=== PATIENT | female | born 1995 | race Caucasian/White ===

== ENCOUNTER 2016-09-12 11:20 | Emergency (ER) | payer OTHER ==
[~2016-09-12] VITALS: Ht 170.1 cm; Wt 74.8 kg
[~2016-09-12 11:20] MED LIST: AMOXICILLIN500 MG PO; AMOXIL250 MG PO; ANAPROX DS550 MG PO; ANUSOL-HC25 MG R; BIRTH CONTROL1 EAC1 PO; BROMFED DM COU473 ML PO; CELEXA10 MG PO; CETIRIZINE HYDR10 MG PO; CIPRO250 MG PO; CIPRO500 MG PO; CLARITIN-D 10 M1 T21 PO; CLARITIN10 MG PO; CLINDAMYCIN HC300 MG PO; Ciprodex 0.3%-7.5 ML OT; FEOSOL45 MG PO; FERROUS SULFATE27 MG PO; FLAGYL500 MG PO; FLEXERIL5 MG PO; FLINTSTONES1 CTB PO; FLOMAX0.4 MG PO; FLUTICASON0.05 MG/A1 NAS; GABAPENTIN1 CRY; IBU800 M1 PO; IBU800 MG PO; IRON65 M1 PO; KEFLEX500 M1 PO; LOMOTIL 0.025 M1 TA1 PO; MACROBID100 M1 PO; MACRODANTIN100 MG PO; MEDROL DOSEPAK4 MG PO; MOTRIN800 MG PO; MULTIVITAMIN1 CTB PO; NEURONTIN300 MG PO; NKHM PO; OMNICEF300 MG PO; ONDANSETRON HYDR4 MG PO; PERCOCET 325 MG1 TA2 PO; PHENERGAN25 M3 PO; PHENERGAN25 MG R; PREDNICOT20 MG PO; PRENATAL1 TA1 PO; PRENATAL1 TA3 PO; PRENATAL1 TA7 PO; PROMETHAZINE25 M1 PO; PROZAC10 MG PO; PYRIDIUM200 M1 PO; RISPERDAL0.25 MG PO; TESSALON PERLE200 MG PO; TRAMADOL HCL50 MG PO; TYLENOL325 M1 PO; VALIUM2 MG PO; VIBRAMYCIN100 MG PO; VICODIN 5/500 505 MG PO; ZITHROMAX Z-PA250 MG PO; ZOFRAN ODT4 MG SL; ZOFRAN4 MG/5 ML PO; Zofran4 MG PO
[2016-09-12 11:21] VITALS: BP 126/80
[2016-09-12 11:58] LABS: BASO % 0.3 % (0.0-1.0); EOS # 0.1 10*3/uL (0.0-0.4); EOS % 0.8 % (1.0-4.0); HEMATOCRIT 29.8 % (37.0-47.0); HEMOGLOBIN 9.6 g/dl (12.0-16.0); IG # 0.1 10*3/uL (0.0-0.1); LYMPH # 2.3 10*3/uL (1.3-4.4); LYMPH % 17.7 % (27.0-41.0); MEAN CELL VOLUME 82.1 fl (81.0-99.0); MEAN CORPUSCULAR HGB 26.4 pg (27.0-31.0); MEAN CORPUSCULAR HGB CONC 32.2 g/dl (33.0-37.0); MEAN PLATELET VOLUME 10.5 fl (9.6-12.3); MONO # 0.9 10*3/uL (0.1-1.0); MONO % 6.9 % (3.0-9.0); NEUT # 9.6 10*3/uL (2.3-7.9); NEUT % 73.7 % (47.0-73.0); PLATELET COUNT AUTOMATED 196 10*3/uL (130-400); RED BLOOD COUNT 3.63 10*6/uL (4.10-5.10); RED CELL DISTRI WIDTH 14.3 % (0-14.5); WHITE BLOOD COUNT 13.1 10*3/uL (4.8-10.8)
[2016-09-12 12:30] LABS: ALBUMIN 2.6 gm/dl (3.1-4.5); ALKALINE PHOSPHATASE 116 U/L (45-117); BILIRUBIN, TOTAL 0.3 mg/dl (0.2-1.0); CARBON DIOXIDE 17 mmol/L (21-32); CHLORIDE 112 mmol/L (98-107); EST GLOM FILT AFRICAN AMERICAN > 60 ml/min; GLUCOSE 81 mg/dL (65-99); POTASSIUM 3.3 mmol/L (3.5-5.1); SGOT/AST 16 IU/L (3-35); SGPT/ALT 10 U/L (12-78); SODIUM 142 mmol/L (136-145); TOTAL PROTEIN 6.3 gm/dL (6.4-8.2)
[2016-09-12 12:32] LABS: BUN < 1 mg/dl (7-24)
[2016-09-13] MEDS ORDERED: REGLAN10 M1 PO (19:42)
[2016-09-17] MEDS ORDERED: REGLAN10 M1 PO (23:28)
[2016-09-17] MEDS ORDERED: KEFLEX500 M1 PO (23:28)
[2016-10-13] MEDS ORDERED: PROMETHAZINE12.5 M1 PO (16:08)
[2016-10-13] MEDS ORDERED: FEROSUL325 MG PO (16:08)
== END 2016-09-12 14:21 | disposition short-term general hospital (02) ==
LOC: ED 11:20
PROVIDERS: Student in an Organized Health Care Education/Training Program
DX: O47.03 False labor before 37 completed weeks of gestation, third trimester (principal); Z3A.36 36 weeks gestation of pregnancy; Z88.6 Allergy status to analgesic agent; Z88.5 Allergy status to narcotic agent; Z88.1 Allergy status to other antibiotic agents; Z88.8 Allergy status to other drugs, medicaments and biological substances

== ENCOUNTER 2016-09-13 18:53 | Emergency (ER) | payer OTHER ==
[~2016-09-13] VITALS: Ht 162.5 cm; Wt 88.9 kg
[2016-09-13 19:41] VITALS: BP 128/71
[2016-09-13] MEDS ORDERED: REGLAN10 M1 PO (19:42)
[2016-09-13 20:35] LABS: BILIRUBIN NEGATIVE (NEGATIVE); BLOOD NEGATIVE (NEGATIVE); CLARITY CLEAR (CLEAR); COLOR YELLOW (YELLOW); GLUCOSE NEGATIVE (NEGATIVE); KETONE NEGATIVE (NEGATIVE); LEUKO ESTERASE NEGATIVE (NEGATIVE); NITRITE NEGATIVE (NEGATIVE); PH 7.5 (5.0-9.0); PROTEIN NEGATIVE (NEGATIVE); SPECIFIC GRAVITY <= 1.005 (1.005-1.030)
[2016-09-13 20:42] LABS: RBC 0-2 rbc/hpf (0-2); URINE REFLEX COMMENT NO (NO); WBC 0-2 wbc/hpf (0-5)
[2016-09-13 20:43] LABS: URINE AMPHETAMINES < 1000 (1000ng/ml); URINE BARBITURATES < 200 (200ng/ml); URINE COCAINE < 300 (300ng/ml)
[2016-09-17] MEDS ORDERED: KEFLEX500 M1 PO (23:28)
[2016-09-17] MEDS ORDERED: REGLAN10 M1 PO (23:28)
[2016-10-13] MEDS ORDERED: FEROSUL325 MG PO (16:08)
[2016-10-13] MEDS ORDERED: PROMETHAZINE12.5 M1 PO (16:08)
== END 2016-09-13 21:37 | disposition home or self-care (01) ==
LOC: ED 18:53
PROVIDERS: Nurse Practitioner Family
DX: O26.893 Other specified pregnancy related conditions, third trimester (principal); K21.9 Gastro-esophageal reflux disease without esophagitis; Z87.442 Personal history of urinary calculi; Z88.6 Allergy status to analgesic agent; Z88.5 Allergy status to narcotic agent; Z88.1 Allergy status to other antibiotic agents; Z88.8 Allergy status to other drugs, medicaments and biological substances; Z3A.36 36 weeks gestation of pregnancy

== ENCOUNTER 2016-12-04 15:38 | Emergency (ER) | payer OTHER ==
[~2016-12-04] VITALS: Ht 162.5 cm; Wt 82.6 kg
[~2016-12-04 15:38] MED LIST changes: +FEROSUL325 MG PO; +PROMETHAZINE12.5 M1 PO; +REGLAN10 M1 PO
[2016-12-04] MEDS ORDERED: VALIUM2 MG PO (15:45)
[2016-12-04] MEDS ORDERED: RISPERDAL1 M1 PO (15:45)
[2016-12-04] MEDS ORDERED: CELEXA10 MG PO (15:45)
[2016-12-04 15:46] VITALS: BP 122/60
[2016-12-04] MEDS ORDERED: CEPHALEXIN500 M1 PO (16:50)
[2016-12-05] MEDS ORDERED: CLINDAMYCIN HC300 MG PO (16:10)
== END 2016-12-04 16:55 | disposition home or self-care (01) ==
LOC: ED 15:38
DX: L02.31 Cutaneous abscess of buttock (principal); F17.200 Nicotine dependence, unspecified, uncomplicated; Z79.899 Other long term (current) drug therapy; Z88.6 Allergy status to analgesic agent; Z88.5 Allergy status to narcotic agent; Z88.1 Allergy status to other antibiotic agents; Z88.8 Allergy status to other drugs, medicaments and biological substances

== ENCOUNTER 2016-12-05 15:40 | Emergency (ER) | payer OTHER ==
[~2016-12-05] VITALS: Wt 82.6 kg
[~2016-12-05 15:40] MED LIST changes: +CEPHALEXIN500 M1 PO; +RISPERDAL1 M1 PO
[2016-12-05 15:48] VITALS: BP 135/77
[2016-12-05] MEDS ORDERED: CLINDAMYCIN HC300 MG PO (16:10)
== END 2016-12-05 16:09 | disposition home or self-care (01) ==
LOC: ED 15:40
DX: R21 Rash and other nonspecific skin eruption (principal); T36.1X5A Adverse effect of cephalosporins and other beta-lactam antibiotics, initial encounter; F17.200 Nicotine dependence, unspecified, uncomplicated; K21.9 Gastro-esophageal reflux disease without esophagitis; Z79.899 Other long term (current) drug therapy; Z88.6 Allergy status to analgesic agent; Z88.1 Allergy status to other antibiotic agents; Z88.5 Allergy status to narcotic agent; Z88.8 Allergy status to other drugs, medicaments and biological substances; Y92.9 Unspecified place or not applicable

== ENCOUNTER 2017-02-21 16:18 | Emergency (ER) | payer OTHER ==
[~2017-02-21] VITALS: Ht 162.5 cm; Wt 95.3 kg
[2017-02-21 16:56] VITALS: BP 152/113
[2017-02-21 17:16] LABS: BILIRUBIN NEGATIVE (NEGATIVE); BLOOD NEGATIVE (NEGATIVE); CLARITY SL CLOUDY (CLEAR); COLOR YELLOW (YELLOW); GLUCOSE NEGATIVE (NEGATIVE); KETONE NEGATIVE (NEGATIVE); LEUKO ESTERASE NEGATIVE (NEGATIVE); NITRITE NEGATIVE (NEGATIVE); PH 8.5 (5.0-9.0); PROTEIN NEGATIVE (NEGATIVE); SPECIFIC GRAVITY 1.015 (1.005-1.030); UROBILINOGEN 0.2 E.U./dl (0.2-1.0)
[2017-02-21 17:27] LABS: BACTERIA 2+; RBC 0-2 rbc/hpf (0-2); URINE REFLEX COMMENT YES (NO)
[2017-02-21] MEDS ORDERED: MACROBID100 M1 PO (17:46)
== END 2017-02-21 17:59 | disposition home or self-care (01) ==
LOC: ED 16:18
PROVIDERS: Registered Nurse
DX: N30.00 Acute cystitis without hematuria (principal); Z88.1 Allergy status to other antibiotic agents; Z88.2 Allergy status to sulfonamides; Z88.6 Allergy status to analgesic agent; Z79.899 Other long term (current) drug therapy

== ENCOUNTER 2017-03-10 13:04 | Emergency (ER) | payer OTHER ==
[~2017-03-10] VITALS: Wt 77.1 kg
[2017-03-10] MEDS ORDERED: FLUOXETINE HYDR20 M1 PO (13:18)
[2017-03-10] MEDS ORDERED: ZYPREXA2.5 MG PO (13:18)
[2017-03-10 13:20] VITALS: BP 130/74
[2017-03-10] MEDS ORDERED: CYCLOBENZAPRINE10 MG PO (16:09)
[2017-03-10] MEDS ORDERED: PREDNISONE10 MG PO (16:09)
== END 2017-03-10 16:08 | disposition home or self-care (01) ==
LOC: ED 13:04
DX: S33.5XXA Sprain of ligaments of lumbar spine, initial encounter (principal); S23.3XXA Sprain of ligaments of thoracic spine, initial encounter; R91.1 Solitary pulmonary nodule; F17.200 Nicotine dependence, unspecified, uncomplicated; Z88.1 Allergy status to other antibiotic agents; Z88.6 Allergy status to analgesic agent; Z79.899 Other long term (current) drug therapy; V43.62XA Car passenger injured in collision with other type car in traffic accident, initial encounter; Y93.89 Activity, other specified; Y92.413 State road as the place of occurrence of the external cause; Y99.8 Other external cause status

== ENCOUNTER → 2017-04-03 | Outpatient (CLI) | payer OTHER ==
[~2017-04-03] MED LIST changes: +CYCLOBENZAPRINE10 MG PO; +FLUOXETINE HYDR20 M1 PO; +PREDNISONE10 MG PO; +ZYPREXA2.5 MG PO
== END | disposition home or self-care (01) ==
LOC: CT 09:00
DX: R91.8 Other nonspecific abnormal finding of lung field (principal)

== ENCOUNTER → 2017-06-09 | Outpatient (CLI) | payer OTHER | END | disposition home or self-care (01) | LOC: MRI 06-03 13:00 | DX: M54.5 Low back pain (principal); M54.6 Pain in thoracic spine ==

== ENCOUNTER 2017-11-17 12:57 | Emergency (ER) | payer OTHER ==
[~2017-11-17] VITALS: Ht 162.5 cm; Wt 96.6 kg
[2017-11-17 13:00] VITALS: BP 117/69
[2017-11-17] MEDS ORDERED: PHENERGAN25 M3 PO (13:05)
[2017-11-17 13:15] LABS: BILIRUBIN NEGATIVE (NEGATIVE); BLOOD NEGATIVE (NEGATIVE); CLARITY CLEAR (CLEAR); COLOR YELLOW (YELLOW); GLUCOSE NEGATIVE (NEGATIVE); KETONE TRACE (NEGATIVE); LEUKO ESTERASE NEGATIVE (NEGATIVE); NITRITE NEGATIVE (NEGATIVE); PH 7.5 (5.0-9.0); UROBILINOGEN 0.2 E.U./dl (0.2-1.0)
[2017-11-17 13:26] LABS: RBC 0-2 rbc/hpf (0-2)
[2017-11-18] MEDS ORDERED: REGLAN5 MG PO (21:00)
== END 2017-11-17 15:03 | disposition home or self-care (01) ==
LOC: ED 12:57
PROVIDERS: Nurse Practitioner Family
DX: O26.851 Spotting complicating pregnancy, first trimester (principal); Z88.6 Allergy status to analgesic agent; Z88.1 Allergy status to other antibiotic agents; Z88.5 Allergy status to narcotic agent; Z88.8 Allergy status to other drugs, medicaments and biological substances; Z79.899 Other long term (current) drug therapy; Z3A.01 Less than 8 weeks gestation of pregnancy

== ENCOUNTER 2017-11-18 19:18 | Emergency (ER) | payer OTHER ==
[~2017-11-18] VITALS: Ht 162.5 cm; Wt 96.6 kg
[2017-11-18 19:19] VITALS: BP 124/78
[2017-11-18 19:41] LABS: BASO % 0.5 % (0.0-1.0); EOS % 0.5 % (1.0-4.0); HEMATOCRIT 38.7 % (37.0-47.0); HEMOGLOBIN 13.1 g/dl (12.0-16.0); LYMPH # 2.1 10*3/uL (1.3-4.4); LYMPH % 26.2 % (27.0-41.0); MEAN CELL VOLUME 86.4 fl (81.0-99.0); MEAN CORPUSCULAR HGB 29.2 pg (27.0-31.0); MEAN CORPUSCULAR HGB CONC 33.9 g/dl (33.0-37.0); MEAN PLATELET VOLUME 9.8 fl (9.6-12.3); MONO # 0.5 10*3/uL (0.1-1.0); MONO % 6.3 % (3.0-9.0); NEUT # 5.4 10*3/uL (2.3-7.9); NEUT % 66.3 % (47.0-73.0); PLATELET COUNT AUTOMATED 288 10*3/uL (130-400); RED BLOOD COUNT 4.48 10*6/uL (4.10-5.10); WHITE BLOOD COUNT 8.1 10*3/uL (4.8-10.8)
[2017-11-18 19:57] LABS: ALBUMIN 4.1 gm/dl (3.1-4.5); ALKALINE PHOSPHATASE 63 U/L (45-117); BUN 6 mg/dl (7-24); CHLORIDE 105 mmol/L (98-107); CREATININE 0.63 mg/dL (0.55-1.02); POTASSIUM 3.6 mmol/L (3.5-5.1); SGOT/AST 14 IU/L (3-35); SGPT/ALT 21 U/L (12-78); SODIUM 137 mmol/L (136-145); TOTAL PROTEIN 7.7 gm/dL (6.4-8.2)
[2017-11-18] MEDS ORDERED: REGLAN5 MG PO (21:00)
== END 2017-11-18 21:05 | disposition home or self-care (01) ==
LOC: ED 19:18
PROVIDERS: Nurse Practitioner Family
DX: O21.9 Vomiting of pregnancy, unspecified (principal); O26.891 Other specified pregnancy related conditions, first trimester; K21.9 Gastro-esophageal reflux disease without esophagitis; O99.331 Smoking (tobacco) complicating pregnancy, first trimester; F17.200 Nicotine dependence, unspecified, uncomplicated; Z3A.01 Less than 8 weeks gestation of pregnancy; Z79.899 Other long term (current) drug therapy; Z88.6 Allergy status to analgesic agent; Z88.1 Allergy status to other antibiotic agents; Z88.5 Allergy status to narcotic agent; Z88.8 Allergy status to other drugs, medicaments and biological substances

== ENCOUNTER 2018-01-25 17:55 | Emergency (ER) | payer OTHER ==
[~2018-01-25] VITALS: Wt 90.3 kg
[~2018-01-25 17:55] MED LIST changes: +REGLAN5 MG PO
[2018-01-25 17:56] VITALS: BP 102/71
[2018-01-25 18:37] LABS: BASO % 0.5 % (0.0-1.0); EOS % 0.3 % (1.0-4.0); HEMATOCRIT 34.3 % (37.0-47.0); LYMPH # 0.7 10*3/uL (1.3-4.4); LYMPH % 11.9 % (27.0-41.0); MEAN CELL VOLUME 87.1 fl (81.0-99.0); MEAN CORPUSCULAR HGB 30.5 pg (27.0-31.0); MONO # 0.7 10*3/uL (0.1-1.0); MONO % 10.9 % (3.0-9.0); NEUT # 4.5 10*3/uL (2.3-7.9); NEUT % 76.1 % (47.0-73.0); PLATELET COUNT AUTOMATED 203 10*3/uL (130-400); RED BLOOD COUNT 3.94 10*6/uL (4.10-5.10); RED CELL DISTRI WIDTH 13.2 % (0-14.5)
[2018-01-25 18:51] LABS: BILIRUBIN 1+ (NEGATIVE); BLOOD NEGATIVE (NEGATIVE); CLARITY SL CLOUDY (CLEAR); COLOR YELLOW (YELLOW); GLUCOSE NEGATIVE (NEGATIVE); KETONE 3+ (NEGATIVE); LEUKO ESTERASE NEGATIVE (NEGATIVE); NITRITE NEGATIVE (NEGATIVE); SPECIFIC GRAVITY 1.015 (1.005-1.030)
[2018-01-25 18:54] LABS: ALKALINE PHOSPHATASE 48 U/L (45-117); BUN 4 mg/dl (7-24); CHLORIDE 109 mmol/L (98-107); CREATININE 0.42 mg/dL (0.55-1.02); POTASSIUM 3.5 mmol/L (3.5-5.1); SGOT/AST 19 IU/L (3-35); SGPT/ALT 16 U/L (12-78); SODIUM 138 mmol/L (136-145); TOTAL PROTEIN 6.4 gm/dL (6.4-8.2)
[2018-01-25 18:59] LABS: URINE AMPHETAMINES < 1000 (1000ng/ml); URINE BARBITURATES < 200 (200ng/ml); URINE BENZODIAZEPINES < 200 (200ng/ml); URINE CANNABINOIDS (THC) > 50 (50ng/ml); URINE COCAINE < 300 (300ng/ml); URINE METHADONE < 300 (300ng/ml); URINE OPIATES < 300 (300ng/ml)
[2018-01-25 19:00] LABS: URINE PHENCYCLIDINE < 25 (25ng/ml)
[2018-01-25 19:03] LABS: MUCOUS 2+
== END 2018-01-25 20:16 | disposition home or self-care (01) ==
LOC: ED 17:55
PROVIDERS: Physician Assistant
DX: O26.892 Other specified pregnancy related conditions, second trimester (principal); E86.0 Dehydration; Z3A.16 16 weeks gestation of pregnancy; Z79.899 Other long term (current) drug therapy; Z88.6 Allergy status to analgesic agent; Z88.1 Allergy status to other antibiotic agents; Z88.5 Allergy status to narcotic agent; Z88.8 Allergy status to other drugs, medicaments and biological substances

== ENCOUNTER → 2018-03-11 | Outpatient (CLI) | payer OTHER | END | disposition home or self-care (01) | LOC: US 10:30 | DX: Z34.81 Encounter for supervision of other normal pregnancy, first trimester (principal) ==

== ENCOUNTER 2018-06-18 19:00 | Emergency (ER) | payer OTHER ==
[~2018-06-18] VITALS: Ht 162.5 cm; Wt 89.8 kg
[2018-06-18 19:04] VITALS: BP 125/64
== END 2018-06-18 20:29 | disposition short-term general hospital (02) ==
LOC: ED 19:00
DX: O62.8 Other abnormalities of forces of labor (principal); K21.9 Gastro-esophageal reflux disease without esophagitis; Z3A.37 37 weeks gestation of pregnancy; Z88.1 Allergy status to other antibiotic agents; Z88.6 Allergy status to analgesic agent; Z88.2 Allergy status to sulfonamides; Z79.899 Other long term (current) drug therapy

== ENCOUNTER 2018-10-07 19:35 | Emergency (ER) | payer MEDICARE, MEDICAID ==
[~2018-10-07] VITALS: Ht 162.5 cm; Wt 77.1 kg
[2018-10-07 19:37] VITALS: BP 134/71
[2018-10-07] MEDS ORDERED: PROZAC20 MG PO (19:44)
[2018-10-07] MEDS ORDERED: ATARAX,VISTARIL10 MG PO (19:44)
[2018-10-07] MEDS ORDERED: VALTREX1000 MG PO (20:06)
[2019-02-01] MEDS ORDERED: NAPROSYN500 MG PO (13:03)
[2019-02-01] MEDS ORDERED: ROBAXIN500 M1 PO (13:03)
[2019-02-01] MEDS ORDERED: PREDNISONE20 M1 PO (13:03)
== END 2018-10-07 20:15 | disposition home or self-care (01) ==
LOC: ED 19:35
DX: A60.04 Herpesviral vulvovaginitis (principal); Z88.6 Allergy status to analgesic agent; Z88.1 Allergy status to other antibiotic agents; Z88.2 Allergy status to sulfonamides; Z79.899 Other long term (current) drug therapy

== ENCOUNTER 2019-07-03 18:37 | Emergency (ER) | payer OTHER ==
[~2019-07-03] VITALS: Ht 162.5 cm; Wt 68.0 kg
[~2019-07-03 18:37] MED LIST changes: +ATARAX,VISTARIL10 MG PO; +NAPROSYN500 MG PO; +PREDNISONE20 M1 PO; +PROZAC20 MG PO; +ROBAXIN500 M1 PO; +VALTREX1000 MG PO
[2019-07-03 18:39] VITALS: BP 134/78
== END 2019-07-03 20:14 | disposition home or self-care (01) ==
LOC: ED 18:37
DX: S82.831A Other fracture of upper and lower end of right fibula, initial encounter for closed fracture (principal); Z88.6 Allergy status to analgesic agent; Z88.1 Allergy status to other antibiotic agents; Z88.2 Allergy status to sulfonamides; Z79.899 Other long term (current) drug therapy; W23.1XXA Caught, crushed, jammed, or pinched between stationary objects, initial encounter; Y93.72 Activity, wrestling; Y92.098 Other place in other non-institutional residence as the place of occurrence of the external cause; Y99.8 Other external cause status

== ENCOUNTER → 2019-08-16 | Outpatient (CLI) | payer OTHER | END | disposition home or self-care (01) | LOC: US 11:31 | DX: Z34.81 Encounter for supervision of other normal pregnancy, first trimester (principal); Z3A.09 9 weeks gestation of pregnancy ==

== ENCOUNTER 2019-09-13 16:42 | Emergency (ER) | payer OTHER ==
[~2019-09-13] VITALS: Ht 162.5 cm; Wt 59.0 kg
[2019-09-13 16:56] VITALS: BP 128/79
== END 2019-09-13 19:17 | disposition home or self-care (01) ==
LOC: ED 16:42
DX: O21.0 Mild hyperemesis gravidarum (principal); O21.9 Vomiting of pregnancy, unspecified; K21.9 Gastro-esophageal reflux disease without esophagitis; G43.909 Migraine, unspecified, not intractable, without status migrainosus; Z3A.13 13 weeks gestation of pregnancy; Z88.1 Allergy status to other antibiotic agents; Z88.6 Allergy status to analgesic agent; Z88.2 Allergy status to sulfonamides; Z79.899 Other long term (current) drug therapy

== ENCOUNTER 2019-09-25 12:56 | Emergency (ER) | payer OTHER ==
[~2019-09-25] VITALS: Ht 162.5 cm; Wt 59.0 kg
[2019-09-25 13:01] VITALS: BP 123/73
== END 2019-09-25 16:30 | disposition home or self-care (01) ==
LOC: ED 12:56
DX: O99.351 Diseases of the nervous system complicating pregnancy, first trimester (principal); G43.909 Migraine, unspecified, not intractable, without status migrainosus; O26.891 Other specified pregnancy related conditions, first trimester; R05 Cough; R09.81 Nasal congestion; R09.3 Abnormal sputum; O99.611 Diseases of the digestive system complicating pregnancy, first trimester; K21.9 Gastro-esophageal reflux disease without esophagitis; O99.331 Smoking (tobacco) complicating pregnancy, first trimester; Z3A.14 14 weeks gestation of pregnancy; Z88.6 Allergy status to analgesic agent; Z88.1 Allergy status to other antibiotic agents; Z88.2 Allergy status to sulfonamides; Z79.899 Other long term (current) drug therapy

== ENCOUNTER → 2019-10-11 | Outpatient (CLI) | payer OTHER | END | disposition home or self-care (01) | LOC: US 11:09 | DX: Z34.82 Encounter for supervision of other normal pregnancy, second trimester (principal); Z3A.17 17 weeks gestation of pregnancy ==

== ENCOUNTER 2021-02-01 09:01 | Emergency (ER) | payer OTHER ==
[~2021-02-01] VITALS: Wt 72.6 kg
[2021-02-01 09:06] VITALS: BP 135/82
[2021-02-01] MEDS ORDERED: NAPROXEN500 M1 PO (12:48)
[2021-02-01] MEDS ORDERED: CYCLOBENZAPRINE10 MG PO (12:48)
== END 2021-02-01 12:52 | disposition home or self-care (01) ==
LOC: ED 09:01
DX: S39.012A Strain of muscle, fascia and tendon of lower back, initial encounter (principal); Z88.8 Allergy status to other drugs, medicaments and biological substances; Z88.2 Allergy status to sulfonamides; X58.XXXA Exposure to other specified factors, initial encounter; Y93.89 Activity, other specified; Y92.89 Other specified places as the place of occurrence of the external cause; Y99.8 Other external cause status